=== PATIENT | male | born 1980 | race Caucasian/White ===

== ENCOUNTER → 2023-12-28 10:11 | Outpatient (REF) | payer OTHER, SELFPAY | LOC: MRI 3T 10:11 | PROVIDERS: ATTENDING PHYSICIAN Student in an Organized Health Care Education/Training Program; FAMILY PHYSICIAN Family Medicine | DX: M54.16 Radiculopathy, lumbar region (principal); M47.816 Spondylosis without myelopathy or radiculopathy, lumbar region; M54.50 Low back pain, unspecified; M25.552 Pain in left hip | CPT/HCPCS: 72148 ==

== ENCOUNTER 2024-09-22 18:41 | Emergency (ER) | payer OTHER, SELFPAY ==
[2024-09-22 18:46] VITALS: BP 141/103
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
[2024-09-22] MEDS: LIDOCAINE 4% PATCH 1 PATCH TOPICAL (20:57)
[2024-09-22] MEDS: ROXICODONE 5 MG PO (20:58)
[2024-09-22] MEDS: TYLENOL 1000 MG PO (20:58)
[2024-09-22 22:23] VITALS: BP 128/82
== END 2024-09-22 22:30 | disposition home or self-care (01) ==
LOC: EMR 18:41
PROVIDERS: EMERGENCY PHYSICIAN Emergency Medicine; FAMILY PHYSICIAN Family Medicine
DX: M54.50 Low back pain, unspecified (principal); G89.29 Other chronic pain; R00.0 Tachycardia, unspecified; Z79.899 Other long term (current) drug therapy
CPT/HCPCS: 99283; 72110